=== PATIENT | male | born 1990 | race Caucasian/White ===

== ENCOUNTER 2021-05-26 10:30 | Emergency (ER) | payer OTHER ==
[~2021-05-26] VITALS: Ht 177.8 cm; Wt 74.8 kg
[2021-05-26] MEDS ORDERED: DOXYCYCLINE HY100 M2 PO (13:56)
== END 2021-05-26 14:06 | disposition home or self-care (01) ==
LOC: ER 10:30
DX: B34.9 Viral infection, unspecified (principal); Z11.52 Encounter for screening for COVID-19